=== PATIENT | female | born 1970 | race Caucasian/White ===

== ENCOUNTER 2020-03-12 14:19 | Outpatient (CLI) | payer OTHER, SELFPAY ==
--- NOTE | ~2020-03-12 | MM_ITS ---
EXAMINATION: MM screening anthony BI w joelle HISTORY: Screening mammogram TECHNIQUE: Craniocaudal and mediolateral oblique 3-D tomosynthesis images were obtained and synthetic 2-D images were generated. CAD analysis was submitted and interpreted. COMPARISON: 03/05/2019, 03/03/2018, 01/06/2017 bilateral digital screening mammogram examinations BREAST PARENCHYMAL COMPOSITION: There are scattered areas of fibroglandular density. FINDINGS: There is no evidence of suspicious mass, calcification, or architectural distortion to sugg est malignancy in either breast. There has been no suspicious interval change. IMPRESSION: 1. No mammographic evidence of malignancy. 2. Recommend routine screening mammography in one year. BI-RADS Category 1: Negative Reviewed, dictated and finalized at location A.
== END 2020-03-12 14:20 | disposition home or self-care (01) ==
LOC: ANHIMG 14:21
PROVIDERS: PCP Family Medicine; Visit Provider Obstetrics & Gynecology
DX: Z12.31 Encounter for screening mammogram for malignant neoplasm of breast (principal)
CPT/HCPCS: 77063; 77067

== ENCOUNTER 2020-04-01 12:58 | Outpatient (CLI) | payer OTHER, SELFPAY ==
--- NOTE | ~2020-04-01 | US_ITS ---
EXAMINATION:US venous doppler LE RT INDICATION:Right leg pain and swelling behind the knee. TECHNIQUE: Multiple grayscale, color flow and Doppler images of the right lower extremity deep venous systems were obtained and reviewed. COMPARISON:Ultrasound dated 08/09/2017 FINDINGS: The common femoral, superficial femoral and popliteal veins demonstrate normal respiratory variation, augmentation and compressibility. Color flow is also seen within the posterior tibial, pe roneal, and profunda veins. There is superficial thrombosis of the branch of the greater saphenous ve in in the area of palpable concern. IMPRESSION: 1: No lower extremity deep venous thrombosis. 2: Superficial thrombosis of a branch of the greater saphenous vein at the level of the knee in the area of palpable concern. Reviewed, dictated and finalized at location A. IMPRESSION: 1: No lower extremity deep venous thrombosis. 2: Superficial thrombosis of a branch of the greater saphenous vein at the lev el of the knee in the area of palpable concern.
== END 2020-04-01 12:59 | disposition home or self-care (01) ==
PROVIDERS: PCP Family Medicine; Visit Provider Internal Medicine Cardiovascular Disease
DX: M79.604 Pain in right leg (principal); M79.89 Other specified soft tissue disorders; I82.811 Embolism and thrombosis of superficial veins of right lower extremity
CPT/HCPCS: 93971

== ENCOUNTER 2020-07-14 09:15 | Outpatient (CLI) | payer OTHER, SELFPAY ==
--- NOTE | ~2020-07-14 | US_ITS ---
EXAMINATION: US venous doppler [facility] EXAM DATE: 07/14/2020 10:42 INDICATION: Varicose veins, leg pain. TECHNIQUE: Multiple grayscale, color flow and Doppler images of the lower extremity deep venous syste ms bilaterally were obtained and reviewed. The exam was reviewed on 07/14/2020. Comparison is made to prior examination from 04/01/2020. FINDINGS: Right side: The right common femoral, femoral and profunda veins demonstrate normal color flow, respi ratory variation, augmentation and compressibility. Compressibility, color flow confirmed within the right popliteal, posterior tibial, peroneal, and greater saphenous veins. Right Standing Venous Mapping: reflux seconds duration; vein size. Greater saphenous origin: 2 seconds; 5.4 mm. Greater saphenous mid thigh:------ 2.5 seconds; 5.4 mm. Greater saphenous below knee:--- 3 seconds; 5.2 mm. Lesser saphenous proximally:------ 2 seconds; 1.9 mm. Lesser saphenous distally: 1 seconds; 2.4 mm. There is somewhat focal region of dilation greater saphenous above the knee up to 12 mm, with one 2nd of reflux in this location. Left side: The left common femoral, femoral and profunda veins demonstrate normal color flow, respira tory variation, augmentation and compressibility. Compressibility, color flow confirmed within the l eft popliteal, posterior tibial, peroneal, and greater saphenous veins. Left Standing Venous Mapping: reflux seconds duration; vein size. Greater saphenous origin: 2 seconds; 4.5 mm. Greater saphenous mid thigh:------ 1 seconds; 4.4 mm. Greater saphenous below knee:--- 2 seconds; 3.8 mm. Lesser saphenous proximally:------ 0 seconds; 3.2 mm. Lesser saphenous distally: 0 seconds; 1.5 mm. Torturous left mid greater saphenous varicosities identified. IMPRESSION: 1. No lower extremity deep venous thrombosis bilaterally. 2. Bilateral deep venous reflux has detailed above. Reviewed, dictated and finalized at location B.
== END 2020-07-14 09:16 | disposition home or self-care (01) ==
PROVIDERS: PCP Family Medicine; Visit Provider Internal Medicine Cardiovascular Disease
DX: I83.93 Asymptomatic varicose veins of bilateral lower extremities (principal); M79.662 Pain in left lower leg; M79.661 Pain in right lower leg
CPT/HCPCS: 93970

== ENCOUNTER → 2020-08-27 10:07 | Outpatient (CLI) | payer OTHER, SELFPAY ==
--- NOTE | ~2020-08-27 | US_ITS ---
EXAMINATION: US venous doppler LE RT EXAM DATE: 08/27/2020 10:42 INDICATION: Varicose veins. Status post ablation one week ago. TECHNIQUE: Multiple grayscale, color flow and Doppler images of the right lower extremity deep venous system were obtained and reviewed. There is no prior study for comparison. FINDINGS: The right common femoral, femoral and profunda veins demonstrate normal color flow, respira tory variation, augmentation and compressibility. Compressibility, color flow confirmed within the r ight popliteal, posterior tibial, peroneal veins. The right greater saphenous vein is thrombosed above the knee. Below the knee there are superficial v aricosities which are nonthrombosed. IMPRESSION: 1. No right lower extremity deep venous thrombosis. 2. Greater saphenous superficial venous thrombosis down to the knee. 3. Nonthrombosed calf varicosities. Reviewed, dictated and finalized at location B. [employer]
== END ==
PROVIDERS: Visit Provider Internal Medicine Cardiovascular Disease
DX: I83.811 Varicose veins of right lower extremity with pain (principal); I82.811 Embolism and thrombosis of superficial veins of right lower extremity
CPT/HCPCS: 93971

== ENCOUNTER 2022-03-17 10:08 | Outpatient (CLI) | payer OTHER, SELFPAY ==
--- NOTE | ~2022-03-17 | MM_ITS ---
EXAMINATION: MM screening anthony BI w joelle HISTORY: Screening mammogram TECHNIQUE: Craniocaudal and mediolateral oblique 3-D tomosynthesis images were obtained and synthetic 2-D images were generated. CAD analysis was submitted and interpreted. COMPARISON: 03/12/2020, 03/05/2019, 03/03/2018 bilateral screening mammogram examinations BREAST PARENCHYMAL COMPOSITION: There are scattered areas of fibroglandular density. FINDINGS: There is no evidence of suspicious mass, calcification, or architectural distortion to sugg est malignancy in either breast. There has been no suspicious interval change. IMPRESSION: 1. No mammographic evidence of malignancy. 2. Recommend routine screening mammography in one year. BI-RADS Category 1: Negative Reviewed, dictated and finalized at location A.
== END 2022-03-17 10:09 | disposition home or self-care (01) ==
PROVIDERS: Visit Provider Obstetrics & Gynecology
DX: Z12.31 Encounter for screening mammogram for malignant neoplasm of breast (principal)
CPT/HCPCS: 77063; 77067

== ENCOUNTER 2022-05-20 00:35 | Day surgery (SDC) | payer OTHER, SELFPAY ==
[2022-03-29 13:17] VITALS: BMI 22.6
--- NOTE | 2022-05-19 10:22 | SUR.PREOP ---
1023 spoke with the patient and instructed patient to not take the magnesium citrate portion of her prep due to the product being recalled. Patient voiced understanding.
--- NOTE | 2022-05-19 13:17 | PM.HPGS ---
History of Present Illness History of Present Illness Consent: Risks, benefits, and alternatives have been discussed and questions answered. Patient agrees to proceed with procedure. Chief complaint: neoplasm screening Narrative: Eileen Babcock is a 51 year old female Who was referred for colon cancer screening. This is her 1st colonoscopy. Review of Systems Review of Systems: All systems reviewed & are unremarkable except as noted in HPI and below PMFSH Past Medical History Medical History History of stroke without residual deficits Mixed hyperlipidemia PFO (patent foramen ovale) TIA (transient ischemic attack) Varicose veins of right lower extremity Surgical History Surgical History Status post patent foramen ovale closure Social History Social History Smoking status: Never smoker Alcohol intake: never Substance use: never Substance use type: does not use Living arrangements: with family Spiritual care concerns: No Meds Home Medications and Allergies Home Medications Medication Instructions Recorded Confirmed Type aspirin 81 mg tablet,delayed 81 mg PO DAILY 10/01/19 05/20/22 History release (Adult Aspirin Regimen) multivitamin,ql-nhgk-dcptshbz 1 tablet PO DAILY 10/01/19 05/20/22 History (Complete Multivitamin tablet) Allergies Allergy/AdvReac Type Severity Reaction Status Date / Time No Known Allergies Allergy Verified 05/20/22 08:16 Exam Resp: Auscultation: clear to auscultation bilaterally Cardio: Rate: regular rate Rhythm: regular rhythm GI: GI Palp: Yes Soft to palpation and No Tenderness to palpation present (GI) Assessment and Plan Assessment and plan (1) Colon cancer screening: Code(s): Z12.11 - Encounter for screening for malignant neoplasm of colon Status: Acute Assessment and Plan: Colonoscopy with possible biopsy or polypectomy or cautery or injection of substances.
--- NOTE | 2022-05-20 07:45 | P.PNAN_ITS ---
Anes - Initial Pre Proc Eval Procedure: Operation Date: 05/20/22 09:30 Proposed Procedures p Screening Colonoscopy - Ebenezer Ewing MD Date/Time: 05/20/22 07:45 Surgeon: Ebenezer Ewing MD Pre Op Diagnosis: neoplasm screening Patient Data Age: 51 Gender: F Height: 1.63 m Weight: 60 kg Allergies Allergy/AdvReac Type Severity Reaction Status Date / Time No Known Allergies Allergy Verified 05/20/22 08:16 Home Medications Medication Instructions Recorded Confirmed Type aspirin 81 mg tablet,delayed 81 mg PO DAILY 10/01/19 05/20/22 History release (Adult Aspirin Regimen) multivitamin,ew-dhhh-uublnsis 1 tablet PO DAILY 10/01/19 05/20/22 History (Complete Multivitamin tablet) Patient hx anesthesia problems: none Family hx anesthesia problems: none Results Review: All pre-operative results and documents have been reviewed as part of the pre- operative evaluation. [facility] Past Medical History Medical History (Updated 05/20/22 @ 07:45 by Demarcus Richardson MD) History of stroke without residual deficits Mixed hyperlipidemia PFO (patent foramen ovale) TIA (transient ischemic attack) Varicose veins of right lower extremity Surgical History Surgical History (Updated 10/01/19 @ 10:36 by Jammie Montejo MA) Status post patent foramen ovale closure Social History Social History (Updated 10/01/19 @ 10:35 by Jammie Montejo MA) Smoking status: Never smoker Alcohol intake: never Substance use: never Substance use type: does not use Living arrangements: with family Spiritual care concerns: No Anes - Eval Final PreProcedure Day of Procedure 05/20/22 07:45 Patient weight: normal Heart: regular rate and rhythm Lungs: clear to auscultation and normal air movement Airway: Mallampati scale class II Neurological: alert and oriented Last oral intake: >/= 8 hours ASA classification: III Emergent: no Anesthetic plan: proceed Anesthesia type and monitoring: general GIVS Results Review: All pre-operative results and documents have been reviewed as part of the pre- operative evaluation. Informed Consent: The patient's anesthetic plan and its attendant risks and benefits were discussed with the patient/family/POA. Questions were solicited and answers provided to the satisfaction of the patient/family/POA.
[2022-05-20 08:22] VITALS: BP 105/61; PULSE 75; RESP 15; TEMP 36.5; O2SAT 100; BMI 21.7
[2022-05-20] MEDS: LACTATED RINGERS 1,000 ML 150 ML IV CONT (08:30)
[2022-05-20 09:30] VITALS: BP 85/49; PULSE 64; RESP 15; O2SAT 100
[2022-05-20 09:40] VITALS: BP 92/57; PULSE 60; RESP 16; O2SAT 100
[2022-05-20 09:50] VITALS: BP 98/47; PULSE 57; RESP 13; O2SAT 100
== END 2022-05-20 09:56 | disposition home or self-care (01) ==
PROVIDERS: PCP Family Medicine Sports Medicine; Referring Provider Obstetrics & Gynecology; Visit Provider Internal Medicine Gastroenterology
PROC: 0DJD8ZZ Inspection of Lower Intestinal Tract, Via Natural or Artificial Opening Endoscopic (ICD-10-PCS; CPT 45378; principal; 2022-05-20 09:30)
DX: Z12.11 Encounter for screening for malignant neoplasm of colon (principal); Z86.73 Personal history of transient ischemic attack (TIA), and cerebral infarction without residual deficits; Q21.1 Atrial septal defect; I83.91 Asymptomatic varicose veins of right lower extremity
CPT/HCPCS: 45378; J2704; J7120

== ENCOUNTER 2023-04-14 08:18 | Outpatient (CLI) | payer OTHER, SELFPAY ==
--- NOTE | ~2023-04-14 | MM_ITS ---
EXAMINATION: MM screening anthony BI w joelle HISTORY: Screening mammogram TECHNIQUE: Craniocaudal and mediolateral oblique 3-D tomosynthesis images were obtained and synthetic 2-D images were generated. CAD analysis was submitted and interpreted. COMPARISON: 03/17/2022, 03/12/2020, 03/05/2019 bilateral screening mammogram examinations BREAST PARENCHYMAL COMPOSITION: There are scattered areas of fibroglandular density. FINDINGS: There is no evidence of suspicious mass, calcification, or architectural distortion to sugg est malignancy in either breast. There has been no suspicious interval change. IMPRESSION: 1. No mammographic evidence of malignancy. 2. Recommend routine screening mammography in one year. BI-RADS Category 1: Negative Reviewed, dictated and finalized at location A.
== END 2023-04-14 08:19 | disposition home or self-care (01) ==
LOC: ANHIMG 08:19
PROVIDERS: PCP Family Medicine Sports Medicine; Visit Provider Obstetrics & Gynecology
DX: Z12.31 Encounter for screening mammogram for malignant neoplasm of breast (principal)
CPT/HCPCS: 77063; 77067

== ENCOUNTER 2023-12-22 13:39 | Outpatient (CLI) | payer BC, SELFPAY ==
[2023-12-22 13:56] LABS: Hematocrit 33.4 % (37.0-47.0); Hemoglobin 11.1 g/dL (12.0-15.0)
== END 2023-12-22 13:40 | disposition home or self-care (01) ==
LOC: ANHLAB 13:42
PROVIDERS: PCP Family Medicine Sports Medicine; Visit Provider Obstetrics & Gynecology
DX: N93.9 Abnormal uterine and vaginal bleeding, unspecified (principal)
CPT/HCPCS: 36415; 85014; 85018

== ENCOUNTER 2023-12-29 00:40 | Day surgery (SDC) | payer BC, SELFPAY ==
[2023-12-22 15:01] VITALS: BMI 24.0
--- NOTE | 2023-12-22 15:07 | PC.NURSE ---
Report to the Outpatient Waiting Room, entrance under the green pavilion located off [facility], at time 0915 on date 12/29/23. Planned Procedure Time: 1115. Time changes happen often and if your time is changed the preop area will call you the afternoon before. - You and your visitor will be asked to self-screen and do not enter if you have any COVID symptoms. - A mask is optional within the hospital at this time. Patients may have clear liquids (water, carbonated beverages, clear teas, apple juice) until 3 hours prior to surgery with a maximum of 20 ounces. - No food from midnight until time of surgery Take the following medications with a SIP of water the morning of surgery: NONE DO NOT STOP ANY OF YOUR OTHER PRESCRIPTION MEDICATIONS PRIOR TO SURGERY ?EXCEPT THE FOLLOWING Medications to discontinue per physician: VITAMINS/SUPPLEMENTS Date to take last dose: 12/25/23 Please no make-up, nail [place], hairspray, perfume, deodorant, or body powder the day of surgery. No jewelry (including any body piercings) or valuables the day of surgery, leave them at home. Please take a shower or bath the night before, or the morning of, surgery with an antibacterial soap. Wear comfortable, loose fitting clothing. - Jewelry must be removed prior to entering the operating room. Rings and piercings that are not removed may be cut off. - The hospital will not accept responsibility for valuables. - Please leave all valuables, including medications, at home the day of surgery. If you are going home after surgery, a licensed interstate bus driver must drive you home. - NO public transportation without another adult if you receive anesthesia. - We recommend that an adult stay with you for 24 hours following discharge. - We also recommend that you do not drive, make important decision, drink alcoholic beverages, or take any drugs that were not prescribed by your health care provider for at least 24 hours after your discharge time. Follow any additional instructions given to you from your surgeon. If you or anyone in your household have experienced Covid symptoms in the past week, please notify your surgeon or the nurse liaison at the phone number below for possible testing. Telephone instructions given to PT - FLY CARDOZA and asked if any additional questions and then verbalized understanding. Patient advised to call surgeon office or pre surgery nurse liaison [phone] if any additional questions.
--- NOTE | 2023-12-27 07:43 | P.HP_ITS ---
H&P: HPI History of Present Illness Date/Time: 12/27/23 07:43 Chief Complaint: Excess bleeding Narrative: 53 year old admitted for hysteroscopy dilatation curettage with Velma ablation. She has long history excessive heavy bleeding. risks and benefits reviewed. She received the A[employer] handout entitled hysteroscopy as well as dilatation curettage. [facility] Past Medical History Medical History History of stroke without residual deficits Mixed hyperlipidemia PFO (patent foramen ovale) TIA (transient ischemic attack) Varicose veins of right lower extremity Surgical History Surgical History Status post patent foramen ovale closure Social History Social History Smoking status: Never smoker Alcohol intake: current Alcohol use details: RARE Substance use: never Substance use type: does not use Living arrangements: with family Spiritual care concerns: No Meds Home Medications and Allergies Home Medications Medication Instructions Recorded Confirmed Type multivitamin,ck-ipba-ghppvise 1 tablet PO DAILY 10/01/19 12/22/23 History (Complete Multivitamin tablet) ferrous sulfate 325 mg (65 mg 325 mg PO DAILY 12/22/23 12/22/23 History iron) tablet (Iron (ferrous sulfate)) omega 5-hzd-imk-fish oil 1,200 mg 1 cap PO DAILY 12/22/23 12/22/23 History (144 mg-216 mg) capsule (Fish Oil) tranexamic acid 650 mg tablet 650 mg PO TID 12/22/23 12/22/23 History Allergies Allergy/AdvReac Type Severity Reaction Status Date / Time No Known Allergies Allergy Verified 12/22/23 15:00 Exam Const: General: cooperative, healthy appearing, comfortable and average body habitus Orientation/consciousness: oriented to person, oriented to place and oriented to time HENMT: Head: normal to inspection Resp: Effort & Inspection: normal respiratory effort Cardio: Rate: regular rate Rhythm: regular rhythm Heart sounds: S1 normal heart sound present and S2 normal heart sound present GI: Inspection: normal to inspection Auscultation: normal bowel sounds : External Female Exam: normal external appearance Speculum Exam - Vagina: normal appearance of the vagina and vaginal bleeding Speculum Exam - Cervix: normal appearance of the cervix Bimanual exam- vagina & uterus: enlarged Bimanual Exam- Adnexa, other: normal adnexae Assessment and Plan Assessment and plan (1) Excessive bleeding: Code(s): R58 - Hemorrhage, not elsewhere classified Status: Acute Plan Hysteroscopy/dilatation curettage/Velma ablation
--- NOTE | 2023-12-28 12:42 | WPDANESEPPF ---
Anes - Initial Pre Proc Eval Procedure: Operation Date: 12/29/23 11:15 Proposed Procedures p Hysteroscopy Dilation and Curettage with Velma Endometrial Ablation - James Vera MD Date/Time: 12/28/23 12:42 Surgeon: James Vera MD Pre Op Diagnosis: excessive vaginal bleeding Patient Data Age: 53 Gender: F Height: 1.63 m Weight: 63.5 kg Allergies Allergy/AdvReac Type Severity Reaction Status Date / Time No Known Allergies Allergy Verified 12/22/23 15:00 Home Medications Medication Instructions Recorded Confirmed Type multivitamin,nz-rfxy-yeoamdhy 1 tablet PO DAILY 10/01/19 12/22/23 History (Complete Multivitamin tablet) ferrous sulfate 325 mg (65 mg 325 mg PO DAILY 12/22/23 12/22/23 History iron) tablet (Iron (ferrous sulfate)) omega 8-kgi-jbf-fish oil 1,200 mg 1 cap PO DAILY 12/22/23 12/22/23 History (144 mg-216 mg) capsule (Fish Oil) tranexamic acid 650 mg tablet 650 mg PO TID 12/22/23 12/22/23 History hydrocodone 5 mg-acetaminophen 325 1 tablet PO Q4H PRN pain #20 tabs 12/29/23 Rx mg tablet Patient hx anesthesia problems: none Family hx anesthesia problems: none Results Review: All pre-operative results and documents have been reviewed as part of the pre-operative evaluation. [facility] Past Medical History Medical History (Updated 12/28/23 @ 12:42 by Jluis Potrer DO) History of stroke without residual deficits Mixed hyperlipidemia PFO (patent foramen ovale) TIA (transient ischemic attack) 2017 - no residual Varicose veins of right lower extremity Surgical History Surgical History Status post patent foramen ovale closure Social History Social History Smoking status: Never smoker Alcohol intake: current Alcohol use details: RARE Substance use: never Substance use type: does not use Living arrangements: with family Spiritual care concerns: No Anes - Eval Final PreProcedure Day of Procedure 12/28/23 12:42 Patient weight: normal Heart: regular rate and rhythm Lungs: clear to auscultation and normal air movement Airway: Mallampati scale class II Neurological: alert and oriented Last oral intake: >/= 8 hours ASA classification: III Emergent: no Anesthetic plan: proceed Anesthesia type and monitoring: general GIVS and standard monitoring Results Review: All pre-operative results and documents have been reviewed as part of the pre-operative evaluation. Informed Consent: The patient's anesthetic plan and its attendant risks and benefits were discussed with the patient/family/POA. Questions were solicited and answers provided to the satisfaction of the patient/family/POA.
[2023-12-29] VITALS (10 sets, daily range): BP systolic 79–119; BP diastolic 45–76; PULSE 70–87; RESP 14–22; TEMP 36.4; O2SAT 98–100
--- NOTE | 2023-12-29 05:53 | WPDHPUPDATE1 ---
History and Physical Update Update Date/Time: 12/29/23 05:53 History and Physical has been reviewed, including an updated exam of the patient. There are NO changes in the patient's condition. Risks, benefits, and alternatives have been discussed and questions answered. Patient agrees to proceed with procedure.
[2023-12-29] MEDS: ACETAMINOPHEN 500 MG TABLET 1000 MG PO (09:30)
[2023-12-29] MEDS: LACTATED RINGERS 1,000 ML 30 ML IV CONT ×2 (09:30→11:00)
[2023-12-29] MEDS: LIDOCAINE HCL 1% LOCAL INJ 10 ML VIAL INFILTRATE (10:21)
--- NOTE | 2023-12-29 10:31 | P.OP_ITS ---
Procedure Note - Detailed Date of Procedure 12/29/23 Pre-op Diagnosis excessive vaginal bleeding Post-op Diagnosis Same Procedure Performed Hysteroscopy / dilatation curettage/Velma ablation Surgeon James Vera MD Anesthesia MAC and Local Indications this is year female with heavy bleeding has been refractory to Lysteda and casted and conduction. Findings uterus sounds to 8cm. Thick irregular endometrial tissue. Description of Procedure Patient was prepped draped in the normal sterile fashion placed in the dorsal lithotomy position. Under excellent IV sedation weighted speculum placed in p osterior fornix vagina. Anterior lip of the cervix grasped with single-tooth tenaculum. 2.5cc 1% xylocaine anesthesia placed at 2, 4, 8, 10:00 a.m. of the cervix. Uterus sounded 8cm. Serial dilatation with fragmented dilators performed followed passage of the hysteroscope. Normal saline was used as visualizing medium. No abnormalities were seen there was thickened irregular endometrium. Uterus was scraped over the entire 360? until good grating sound was heard. The instruments withdrawn Velma instrument was placed at the appropriate settings and burned for 120seconds the of the hysteroscope was reinserted and excellent burn was noted and photo documentation undertaken instruments withdrawn. Blood loss estimated 5cc. All sponge, needle, instrument counts were correct. There were no immediate complications. Estimated Blood Loss 5 Drains No Packing No Pathology Yes Complications No immediate complications Condition Stable Disposition PACU
== END 2023-12-29 12:55 | disposition home or self-care (01) ==
PROVIDERS: PCP Family Medicine; Visit Provider Obstetrics & Gynecology
PROC: 0U5B8ZZ Destruction of Endometrium, Via Natural or Artificial Opening Endoscopic (ICD-10-PCS; CPT 58563; principal; 2023-12-29 10:15)
DX: N93.9 Abnormal uterine and vaginal bleeding, unspecified (principal); E78.2 Mixed hyperlipidemia; Z86.73 Personal history of transient ischemic attack (TIA), and cerebral infarction without residual deficits
CPT/HCPCS: 58563; 88305; A9270; J2405; J2704; J7120

== ENCOUNTER 2024-05-30 11:20 | Outpatient (CLI) | payer BC, SELFPAY ==
--- NOTE | ~2024-05-30 | MM_ITS ---
EXAMINATION: MM screening anthony BI w joelle HISTORY: Screening TECHNIQUE: Craniocaudal and mediolateral oblique 3-D tomosynthesis images were obtained and synthetic 2-D images were generated. CAD analysis was submitted and interpreted. COMPARISON: Comparison to multiple prior studies sequentially, with oldest reviewed study dated 01/06. BREAST PARENCHYMAL COMPOSITION: Not dense: There are scattered areas of fibroglandular density. FINDINGS: There is no evidence of suspicious mass, calcification, or architectural distortion to sugg est malignancy in either breast. There has been no suspicious interval change. IMPRESSION: 1. No mammographic evidence of malignancy. 2. Recommend routine screening mammography in one year. BI-RADS Category 1: Negative Reviewed, dictated and finalized at location B.
== END 2024-05-30 11:21 ==
PROVIDERS: PCP Family Medicine; Visit Provider Obstetrics & Gynecology
DX: Z12.31 Encounter for screening mammogram for malignant neoplasm of breast (principal)
CPT/HCPCS: 77063; 77067

== ENCOUNTER 2025-06-05 10:18 | Outpatient (CLI) | payer BC, SELFPAY ==
--- NOTE | ~2025-06-05 | MM_ITS ---
EXAMINATION: MM screening anthony BI w joelle HISTORY: Screening TECHNIQUE: Craniocaudal and mediolateral oblique 3-D tomosynthesis images were obtained and synthetic 2-D images were generated. CAD analysis was submitted and interpreted. COMPARISON: Comparison to multiple prior studies sequentially, with oldest reviewed study dated 03/03. BREAST PARENCHYMAL COMPOSITION: Not dense: There are scattered areas of fibroglandular density. FINDINGS: There is no evidence of suspicious mass, calcification, or architectural distortion to sugg est malignancy in either breast. There has been no suspicious interval change. IMPRESSION: 1. No mammographic evidence of malignancy. 2. Recommend routine screening mammography in one year. BI-RADS Category 1: Negative Reviewed, dictated and finalized at location A.
== END 2025-06-05 10:19 | disposition home or self-care (01) ==
LOC: MICIMG 10:19
PROVIDERS: PCP Family Medicine; Visit Provider Obstetrics & Gynecology
DX: Z12.31 Encounter for screening mammogram for malignant neoplasm of breast (principal)
CPT/HCPCS: 77063; 77067